=== PATIENT | female | born 1940 | race Two or more races ===

== ENCOUNTER 2017-05-24 00:45 | Outpatient (CLI) | payer MEDICARE ==
[~2017-05-24 00:45] MED LIST: ASPI-1265 PO; CLOB30CR27 TOP; CLON-529 PO; GLIM4TAB PO; HYDR12.522 PO; IMD30T PO; INSU100V12 SQ; NOR5T PO; PANT40TA39 PO; POTA20PA3 PO; VALS80TA2 PO; [UNRECOGNIZED DRUG - CODE] PO
== END 2017-05-24 23:59 | disposition home or self-care (01) ==
LOC: DIABETIC 00:45
PROVIDERS: ATTEND Specialist
DX: E11.65 Type 2 diabetes mellitus with hyperglycemia (principal); I11.0 Hypertensive heart disease with heart failure; I50.9 Heart failure, unspecified
CPT/HCPCS: G0108

== ENCOUNTER 2020-03-01 17:42 | Emergency (ER) | payer MEDICARE ==
[~2020-03-01] VITALS: Ht 167.6 cm; Wt 81.8 kg
[~2020-03-01 17:42] MED LIST changes: -POTA20PA3 PO; +POTA20PA40 PO
[2020-03-01 18:45] LABS: BASOPHILS # (AUTO) 0.1 X10'3 (0-0.2); BASOPHILS % (AUTO) 0.4 % (0-1); EOSINOPHILS % (AUTO) 0.1 % (0-6); HEMATOCRIT 43.1 % (35.0-45.0); HEMOGLOBIN 14.5 g/dl (12.0-16.0); LYMPHOCYTES # (AUTO) 1.2 X10'3 (1.1-4.8); LYMPHOCYTES % (AUTO) 6.9 % (21-51); MEAN CORPUSCULAR HGB CONC 33.6 g/dL (33.0-36.5); MEAN CORPUSCULAR VOLUME 86.3 FL (78-98); MEAN PLATELET VOLUME 9.1 FL (7.4-10.4); MONOCYTES # (AUTO) 1.3 X10'3 (0-0.9); MONOCYTES % (AUTO) 7.5 % (2-12); NEUTROPHILS # (AUTO) 14.4 X10'3 (1.8-7.7); NEUTROPHILS % (AUTO) 85.1 % (42-75); PLATELET COUNT 221 X10'3 (140-440); RED CELL DISTRIBUTION WIDTH 14.8 % (11.5-14.5); WHITE BLOOD COUNT 16.9 X10'3 (4.5-11.0)
[2020-03-01 18:54] LABS: ALANINE AMINOTRANSFERASE 8 U/L (12-78); ALBUMIN 4.1 G/DL (3.4-5.0); ALBUMIN/GLOBULIN RATIO 1.1 (1.1-1.5); ALKALINE PHOSPHATASE 62 IU/L (46-116); ANION GAP 15 (8-16); ASPARTATE AMINO TRANSFERASE 18 U/L (10-37); BILIRUBIN,TOTAL 0.6 MG/DL (0.1-1.0); BLOOD UREA NITROGEN 27 MG/DL (7-18); BUN/CREATININE RATIO 11.5 (6.6-38.0); CALCIUM 8.4 MG/DL (8.5-10.1); CHLORIDE 100 MMOL/L (99-107); CREATININE 2.34 MG/DL (0.40-0.90); GLUCOSE 152 MG/DL (70-104); LIPASE 86 U/L (73-393); POTASSIUM 3.7 MMOL/L (3.5-5.1); SODIUM 138 MMOL/L (135-145); TOTAL CARBON DIOXIDE 23.5 MMOL/L (24-32); TOTAL PROTEIN 7.8 G/DL (6.4-8.2); eGFR 20 ML/MIN
[2020-03-01 19:37] LABS: CLARITY,URINE SLIGHTLY CLOUDY (Clear); COLOR,URINE YELLOW (Yellow); GLUCOSE, URINE NEGATIVE (Neg); KETONES,URINE TRACE mg/dl (Neg); LEUKOCYTE ESTERASE ,URINE NEGATIVE (Neg); NITRITES, URINE NEGATIVE (Neg); OCCULT BLOOD,URINE MODERATE (Neg); PH,URINE 5.5 (4.8-8.0); PROTEIN,URINE >=300 mg/dl (Neg); UROBILINOGEN,URINE 0.2 E.U/dL (0.2-1.0)
[2020-03-01 19:40] LABS: UA COLLECTION TYPE CLN CATCH MIDSTREAM
[2020-03-01 19:45] LABS: BACTERIA,URINE 3+ /HPF (Neg); MUCUS STRANDS NONE SEEN /LPF (Neg); RBC,URINE 0-2 /HPF (0-2); SQUAMOUS EPITHELIAL CELL,UR FEW /LPF (FEW); WBC,URINE 0-4 /HPF (0-4)
[2020-03-01 19:47] LABS: FINE GRANULAR CAST 0-3 /LPF (NEGATIVE); HYALINE CASTS 0-3 /LPF (NEGATIVE)
[2020-03-01] MEDS ORDERED: ondansetron/PF 4mg/2ml inj IV ONE (20:10)
[2020-03-01] MEDS ORDERED: morphine 4 MG/ML inj SYRINge IV ONE (20:10)
[2020-03-01] MEDS ORDERED: OXYC-145 PO (20:39)
[2020-03-01] MEDS ORDERED: ONDA4TAB6 PO (20:39)
--- NOTE | 2020-03-01 21:19 | NUR ---
Spoke with the Provider regarding the patient's elevated blood pressure. Pt is to follow up with her primary physician for medication adjustment and management of her hypertension.
[2020-03-01 21:26] VITALS: BP 189/94
[2020-03-04] MEDS ORDERED: FLUO20CA39 PO (09:46)
[2020-03-04] MEDS ORDERED: CLOP75TA35 PO (09:46)
[2020-03-04] MEDS ORDERED: ALBU6.7H9 INH (09:46)
[2020-03-04] MEDS ORDERED: KEN0.1O TP (09:46)
[2020-03-04] MEDS ORDERED: ATOR20TA PO (09:46)
[2020-03-04] MEDS ORDERED: LEVO112T39 PO (09:46)
[2020-03-04] MEDS ORDERED: METF500T PO (09:46)
[2020-03-04] MEDS ORDERED: LOSA25TA96 PO (09:46)
== END 2020-03-01 21:20 | disposition home or self-care (01) ==
LOC: ER 17:43
DX: N20.0 Calculus of kidney (principal); N17.9 Acute kidney failure, unspecified; I10 Essential (primary) hypertension; E11.9 Type 2 diabetes mellitus without complications; Z90.49 Acquired absence of other specified parts of digestive tract; Z98.51 Tubal ligation status; Z88.8 Allergy status to other drugs, medicaments and biological substances; Z79.82 Long term (current) use of aspirin; Z79.4 Long term (current) use of insulin; Z79.899 Other long term (current) drug therapy
CPT/HCPCS: 36415; 74176; 80053; 81001; 82948; 83690; 85025; 93005; 96374; 96375; 99285; J2270; J2405